=== PATIENT | male | born 2000 | race Caucasian/White ===

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

== ENCOUNTER 2023-02-11 06:59 | Emergency (ER) | payer OTHER ==
[2023-02-11 07:17] VITALS: BP 110/64; PULSE 72; RESP 18; TEMP 97.9; BMI 22.2
[2023-02-11] MEDS ORDERED: ACETAMINOPHEN 500 MG TABLET (FP) PO ONE (07:41)
[2023-02-11] MEDS ORDERED: ACETAMINOPHEN 500 MG TABLET (FP) ONE (07:51)
== END 2023-02-11 09:45 | disposition home or self-care (01) ==
LOC: JER 06:59
DX: S82.392A Other fracture of lower end of left tibia, initial encounter for closed fracture (principal); M25.572 Pain in left ankle and joints of left foot; M54.50 Low back pain, unspecified; R07.89 Other chest pain; W50.0XXA Accidental hit or strike by another person, initial encounter; Y93.39 Activity, other involving climbing, rappelling and jumping off
CPT/HCPCS: 71045-TC-FY; 72100-TC-FY; 73610-TC-LT-FY; 73630-TC-LT; 93005; 93010; 99284-25